=== PATIENT | male | born 2000 | race Caucasian/White ===

== ENCOUNTER 2021-02-21 23:27 | Emergency (ER) | payer OTHER ==
[~2021-02-21] VITALS: Ht 188 cm; Wt 72.6 kg
[~2021-02-21 23:27] MED LIST: IBUPROFEN 800800 M1 PO
[2021-02-22 00:59] LABS: URINE BLOOD NEGATIVE (Negative); URINE CLARITY CLEAR; URINE COLOR YELLOW; URINE GLUCOSE-RANDOM NEGATIVE (Negative); URINE KETONES 1+ (Negative); URINE LEUKOCYTES-REFLEX NEGATIVE (Negative); URINE NITRITE-REFLEX NEGATIVE (Negative); URINE PROTEIN NEGATIVE (Negative); URINE SPECIFIC GRAVITY 1.025 (1.005-1.030); URINE UROBILINOGEN >= 8.0 E.U./dl (0.2-1.0)
[2021-02-22 01:00] LABS: ICTOTEST (BILI CONFIRMATORY) Negative (Negative); URINE BILIRUBIN 1+ (Negative)
[2021-02-22 01:06] LABS: AMP/METHAMP Negative (Negative); BARBITURATES Negative (Negative); BENZODIAZEPINES Negative (Negative); COCAINE Negative (Negative); METHADONE Negative (Negative); OPIATES Negative (Negative); PCP Negative (Negative); THC POSITIVE (Negative)
[2021-02-22 01:16] VITALS: BP 136/97
== END 2021-02-22 01:17 | disposition home or self-care (01) ==
LOC: M.ERS 23:27
PROVIDERS: Personal Emergency Response Attendant
DX: F41.0 Panic disorder [episodic paroxysmal anxiety] (principal); R06.4 Hyperventilation; R29.0 Tetany; M62.838 Other muscle spasm; R42 Dizziness and giddiness